=== PATIENT | female | born 1985 | race African-American/Black ===

== ENCOUNTER 2021-10-04 11:39 | Emergency (ER) | payer MEDICAID ==
[~2021-10-04] VITALS: Ht 175.3 cm; Wt 102.0 kg
[2021-10-04] MEDS ORDERED: ACETAMINOPHEN 325MG TABLET PO STA (15:23)
[2021-10-04] MEDS ORDERED: LIDOCAINE HCL 1% 20ML VIAL (Pyxis) INJ INFIL ONE (15:45)
[2021-10-04] MEDS ORDERED: AZITHROMYCIN 500 MG TABLET PO ONE (15:45)
[2021-10-04] MEDS ORDERED: CEFTRIAXONE SODIUM 500 MG/VIAL IM ONE (15:45)
[2021-10-04 15:49] LABS: BASOPHILS % 0.2 % (0.0-2.0); EOSINOPHILS % 0.6 % (0.0-5.0); HEMATOCRIT. 37.1 % (36.0-48.0); HEMOGLOBIN. 12.2 g/dL (12.0-16.0); LYMPHOCYTES % 22.3 % (20.0-50.0); MEAN CORPUSCULAR HEMOGLOBIN 28.5 pg (28.0-32.0); MEAN CORPUSCULAR VOLUME 86.9 fL (81.0-99.0); MEAN PLATELET VOLUME 8.4 fl (7.4-10.4); MONOCYTES % 7.7 % (2.0-8.0); NEUTROPHILS % 69.2 % (40.0-76.0); PLATELET 316 x1000/uL (130-400); RED BLOOD CELL COUNT 4.27 mill/uL (4.2-5.4); RED CELL DISTRIBUTION WIDTH 16.8 % (11.6-14.6)
[2021-10-04 15:50] LABS: CHLORIDE 108 mEq/L (98-107)
[2021-10-04] MEDS ORDERED: LIDOCAINE HCL/PF 1% 10 MG/ML 5ML VIAL INFIL SCH (16:16)
[2021-10-04 16:18] LABS: B-HCG QUANTITATIVE 30101 mIU/mL (<3)
[2021-10-04 16:21] LABS: CLARITY URINE CLEAR (CLEAR); COLOR URINE YELLOW (YELLOW); KETONES URINE NEGATIVE (NEGATIVE); LEUKOCYTE ESTERASE URINE 2+ (NEGATIVE); NITRITE URINE NEGATIVE (NEGATIVE); OCCULT BLOOD URINE NEGATIVE (NEGATIVE); PROTEIN URINE NEGATIVE (NEGATIVE); SPECIFIC GRAVITY URINE 1.023 (1.005-1.030); UROBILINOGEN URINE 0.2 E.U./dL (0.2-1.0)
[2021-10-04] MEDS ORDERED: NITR-87 MT (18:20)
[2021-10-04] MEDS ORDERED: METR500T MT (18:20)
[2021-10-04 18:36] VITALS: BP 122/81
[2021-10-08 04:14] LABS: NEISSERIA GONORRHOEAE NAA Negative (Negative)
== END 2021-10-04 18:38 | disposition home or self-care (01) ==
LOC: ER 11:39
DX: O20.0 Threatened abortion (principal); O23.41 Unspecified infection of urinary tract in pregnancy, first trimester; N39.0 Urinary tract infection, site not specified; O23.591 Infection of other part of genital tract in pregnancy, first trimester; O34.11 Maternal care for benign tumor of corpus uteri, first trimester; B96.89 Other specified bacterial agents as the cause of diseases classified elsewhere; Z3A.11 11 weeks gestation of pregnancy
CPT/HCPCS: 36415; 76801; 76817; 80053; 81003; 81025; 84702; 85025; 86850; 86900; 86901; 87210; 87491; 87591; 96372; 99284; J0696; J3490

== ENCOUNTER 2023-09-30 15:12 | Emergency (ER) | payer MEDICAID ==
[~2023-09-30] VITALS: Ht 175.3 cm; Wt 100.0 kg
[~2023-09-30 15:12] MED LIST: METR500T MT; NITR-87 MT
[2023-09-30 15:39] VITALS: BP 123/80; O2SAT 99
[2023-09-30 16:47] LABS: BASOPHILS % 0.2 % (0.0-2.0); EOSINOPHILS % 0.5 % (0.0-5.0); HEMATOCRIT. 31.1 % (36.0-48.0); LYMPHOCYTES % 18.5 % (20.0-50.0); MEAN CORPUSCULAR HEMOGLOBIN 26.2 pg (28.0-32.0); MEAN CORPUSCULAR HGB CONC 32.3 g/dL (31.0-37.0); MEAN CORPUSCULAR VOLUME 81.3 fL (81.0-99.0); MEAN PLATELET VOLUME 8.4 fl (7.4-10.4); MONOCYTES % 9.1 % (2.0-8.0); NEUTROPHILS % 71.7 % (40.0-76.0); PLATELET 313 x1000/uL (130-400); RED BLOOD CELL COUNT 3.83 mill/uL (4.2-5.4); RED CELL DISTRIBUTION WIDTH 18.8 % (11.6-14.6); WHITE BLOOD COUNT 7.7 x1000/uL (4.5-11.0)
[2023-09-30 16:54] LABS: CHLORIDE 108 mEq/L (98-107); INDEX HEMOLYSI 1 (1-3); INDEX ICTERIC 1 (1-4); INDEX LIPEMIC 1 (1-3); POTASSIUM 3.9 mEq/L (3.5-5.1); SODIUM 136 mEq/L (136-145)
[2023-09-30 17:05] LABS: ALANINE AMINOTRANSFERASE 13 IU/L (13-61); ALBUMIN 2.7 g/dL (3.4-5.0); ASPARTATE AMINOTRANSFERASE 12 IU/L (15-37); BILIRUBIN TOTAL 0.1 mg/dL (0.1-1.0); CALCIUM 8.4 mg/dL (8.5-10.1); CARBON DIOXIDE 24 mEq/L (21-32); CREATININE 0.6 mg/dL (0.6-1.3); GLUCOSE 79 mg/dL (70-105); UREA NITROGEN BLOOD 7 mg/dL (7-21)
[2023-09-30 17:52] LABS: CLARITY URINE CLOUDY (CLEAR); COLOR URINE YELLOW (YELLOW); GLUCOSE URINE NEGATIVE (NEGATIVE); KETONES URINE NEGATIVE (NEGATIVE); LEUKOCYTE ESTERASE URINE 3+ (NEGATIVE); NITRITE URINE NEGATIVE (NEGATIVE); OCCULT BLOOD URINE NEGATIVE (NEGATIVE); PROTEIN URINE TRACE (NEGATIVE); SPECIFIC GRAVITY URINE 1.029 (1.005-1.030)
[2023-09-30] MEDS ORDERED: ACETAMINOPHEN 325MG TABLET PO PRN (18:00)
[2023-09-30 18:21] LABS: BACTERIA URINE TRACE; SQUAMOUS EPITHELIAL CELL URINE FEW /lpf (RARE/1+)
[2023-09-30 18:23] LABS: B-HCG QUANTITATIVE 79794 mIU/mL (<3)
[2023-09-30] MEDS ORDERED: AZIT250T12 MT (20:40)
[2023-09-30] MEDS ORDERED: CEPH500T MT (20:40)
[2023-09-30 21:01] VITALS: PULSE 92; RESP 18; TEMP 98.7
== END 2023-09-30 21:01 | disposition home or self-care (01) ==
LOC: ER 15:12
DX: O99.891 Other specified diseases and conditions complicating pregnancy (principal); N30.00 Acute cystitis without hematuria; R10.2 Pelvic and perineal pain; Z3A.00 Weeks of gestation of pregnancy not specified
CPT/HCPCS: 80053; 81003; 81025; 84702; 85025; 87086; 36415; 76801; 76817; 99284; Z7610 ×2